=== PATIENT | female | born 1940 | race African-American/Black ===

== ENCOUNTER 2017-03-29 15:06 | Inpatient (IN) | payer OTHER ==
[~2017-03-29] VITALS: Ht 154.9 cm; Wt 88.5 kg
--- NOTE | ~2017-03-29 | 2DMMODE ---
[facility] [address] [place] [address] 2 D/M-MODE ECHOCARDIOGRAM Name: BENITOPHYLICIAERIS Maricel Room #: 412-P [facility] IN [facility]#: [id number] Admission: 03/29/17 Attend Phys: Preston Ceballos MD Discharge: Date of : 40 Date of Service: 03/30/17 1116 Report #: [id number] THIS REPORT FOR: //name// APPROVED REPORT Study performed: 03/30/2017 10:16:04 EXAM: Comprehensive 2D, Doppler, and color-flow Echocardiogram Patient Location: Bedside Room #: 412 Status: routine BSA: 1.85 BP: 165/93 mmHg Other Information Study Quality: Technically DifficultTechnically Limited Technically limited study due to uncooperative patient. Indications Congestive Heart Failure Diabetes Hypertension/HDD Paroxysmal atrial fibrillation 2D Dimensions LVEF(%): 55.70 (>50%) IVSd: 13.90 (7-11mm) LVOT Diam: 17.83 (18-24mm) LVDd: 43.41 mm PWd: 13.37 (7-11mm) Ascending Ao: 32.22 (22-36mm) LVDs: 30.90 (25-40mm) Aortic Root: 30.99 mm IVC: 21.00 mm Madrigal's LVEF: 55.70 % Volumes Left Atrial Volume (Systole) Single Plane 4CH: 48.69 mL Single Plane 2CH: 41.35 mL LA ESV Index: 26.00 mL/m2 Aortic Valve AoV Peak Dionisio.: 1.46 m/s AO Peak Gr.: 8.53 mmHg LVOT Max P.49 mmHg LVOT Max V: 1.17 m/s RONIT Vmax: 2.00 cm2 [facility] [address] [address] [place] [address] 2 D/M-MODE ECHOCARDIOGRAM Name: ERIS OLIVER Room #: 412-P [facility] IN [facility]#: [id number] Admission: 03/29/17 Attend Phys: Preston Ceballos MD Discharge: Date of : 40 Date of Service: 03/30/17 1116 Report #: [id number] Mitral Valve E/A Ratio: 0.5 MV Decel. Time: 285.92 ms MV E Max Dionisio.: 0.59 m/s MV A Dionisio.: 1.22 m/s MV PHT: 82.92 ms IVRT: 101.50 ms Pulmonary Valve PV Peak Dionisio.: 1.13 m/s PV Peak Gr.: 5.09 mmHg Tricuspid Valve RAP Estimate: 5.00 mmHg Left Ventricle The left ventricle is normal size. Regional wall motion is not well visualized but grossly normal. Mild to moderate concentric left ventricular hypertrophy. The left ventricular systolic function is normal. The left ventricular ejection fraction is within the normal range. LVEF is 60-65%. Mild diastolic dysfunction is present (impaired relaxation pattern). Right Ventricle Right ventricle is not well visualized. Atria The left atrium size is normal. Right atrium is not well visualized. Aortic Valve The aortic valve is midly calcified No aortic regurgitation is present. There is no aortic valvular stenosis. Mitral Valve Mild mitral annular calcification. There is no mitral valve regurgitation noted. No evidence of mitral valve stenosis. Tricuspid Valve Tricuspid valve is not well visualized. Unable to assesss PA pressure. Pulmonic Valve Pulmonic valve is not well visualized. [employer] [facility] [place] [address] 2 D/M-MODE ECHOCARDIOGRAM Name: ERIS OLIVER Room #: 412-P ADM IN M.R.#: [id number] Admission: 03/29/17 Attend Phys: Preston Ceballos MD Discharge: Date of : 40 Date of Service: 03/30/17 1116 Report #: [id number] The aortic root is normal in size. IVC is upper limits of normal in size and collapses >50% with inspiration. Pericardium There is no pericardial effusion. <Conclusion> The left ventricular systolic function is normal. Mild to moderate concentric LVH Regional wall motion is not well visualized but grossly normal. LVEF 60-65%. Mild diastolic dysfunction is present (impaired relaxation pattern). The aortic valve is midly calcified. No aortic regurgitation or stenosis Mild mitral annular calcification. No mitral valve regurgitation noted. There is no pericardial effusion. <ELECTRONICALLY SIGNED> By: Alexis Wilson MD, FACC 03/30/17 1116 1116 1116 Alexis Wilson MD, FAC /INF
--- NOTE | ~2017-03-29 | HC ---
[facility] [place] [address] [place] [address] CONSULTATION Name: ERIS OLIVER Room #: 412-P [facility] IN .R.#: [id number] Admission: 03/29/17 Attend Phys: Preston Ceballos MD Discharge: Date of : 40 Report #: [id number] THIS REPORT FOR: //name// CC: Al Ceballos DATE OF SERVICE: 03/31/2017 HISTORY OF PRESENT ILLNESS: The patient is a 76-year-old -[place] female who was found down at home by her sister. 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 Upon admission to [facility], she was diagnosed with a urinary tract infection and noted to have greater than 10 to 15 E. coli. She is being changed to gentamicin to continue IV. She also complained of severe pain involving her right large toe. She has an elevated uric acid of 9.4 and has been diagnosed with an acute attack of gout. Therapy orders are resumed with PT and OT allowing her to try to weightbear as best she can on that right foot. Obviously with her premorbid left hemiparesis complicated by the right large toe pain. She has had a significant decline in her functional independence. This is further complicated by the urinary tract infection and the fall for which she was down at home premorbidly. PAST MEDICAL HISTORY: Includes hypertension, CVA x 2, borderline mental retardation, and obesity. The CVA includes left-sided hemiparesis. MEDICATIONS: Please see the full medication listing. ALLERGIES: BETA BLOCKERS AND SULFA. HABITS: Past tobacco, quit greater than a year ago. No history of alcohol abuse. FAMILY HISTORY: Significant for obesity, osteoarthritis, diabetes mellitus type 2, and hypertension. SOCIAL HISTORY: Lives in an apartment alone, uses the walker. Her sister helps her as well as the niece. There are no steps. Sisters apparently closely involved as well as the niece. REVIEW OF SYSTEMS: She did not offer any current complaints of chest pain, shortness of breath or abdominal discomfort. Notes that the right large toe discomfort is improving. No other focal extremity pain complaints. Denied any swallowing problems per se. PHYSICAL EXAMINATION: GENERAL: She is a 76-year-old -[place] [address] CONSULTATION Name: ERIS OLIVER Room #: [facility]..#: [id number] Admission: 03/29/17 Attend Phys: Preston Ceballos MD Discharge: Date of : 40 Report #: [id number] VITAL SIGNS: Last recorded temperature is 98, pulse 81, respirations 16, blood pressure 147/83. NEUROLOGIC: The patient is alert. Facies are symmetric. She does have poor dentition. She is able to verbalize reasonably well. ABDOMEN: She does have significant Exogenous obesity. Extremities: Functional range of motion of the right upper extremity without focal weakness. Left upper extremity reveals premorbid paresis. I would grade her at a 3+/5. She moves that left upper extremity slowly. Left lower extremity is probably a grade 3+ to 4-/5. Right lower extremity strength is more of a grade 4/5. Upon examination of the right large toe. She is able to wiggle it and I was able to touch the toe and do some gentle testing. No significant erythema at this time. She notes it still hurts, but it is improving. There is no focal calf swelling. She is noted to be min assist with bed mobility and was last max assist for stand pivot. ASSESSMENT: A 76-year-old female with the following problem list: 1. Premorbid left hemiparesis. 2. Acute attack of gout, right hallux. 3. Urinary tract infection, on intravenous gentamicin. 4. Fall at home being found down by sister. 5. Hypertension. 6. Exogenous obesity. 7. Obstructive sleep apnea. 8. Diabetes mellitus type 2. 9. Poor dentition. 10. History of osteoarthritis in multiple sites. PLAN: PT and OT will continue to work with her again today and we will see how she tolerates the therapies. Insurance will need to be checked regarding a possible rehabilitation therapy stay. She is very motivated to return back home and specifically decided that she does not want to go to any type of residential. We will see how she does in therapies and check with insurance and follow along from there. Thank you for asking us to assist in this patient's care. <ELECTRONICALLY SIGNED> By: Kendrick Gordillo MD 04/03/17 1509 [id number] [id number] Kendrick Gordillo MD /STEPHANE
--- NOTE | ~2017-03-29 | EKG ---
[facility] [place] [address] ELECTROCARDIOGRAM REPORT Name: ERIS OLIVER Room #: [facility] Jimena#: [id number] Admission: 03/29/17 Attend Phys: Discharge: Date of : 40 Report #: [id number] THIS REPORT FOR: //name// [facility] ED Test Date: 2017-03-29 Test Time: 16:03:53 Pat Name: ERIS BENITO Department: Room: Gender: F Merchandise Manager: YOVANNY : 1940 Requested By: Bill Corrigan Order Number: [id number] MD: Jose Philippe Measurements Intervals [place] Rate: 89 P: -12 [place]: 177 QRS: -29 QRSD: 85 T: 9 QT: 403 QTc: 491 Interpretive Statements Sinus rhythm Left atrial enlargement Borderline left axis deviation Abnormal R-wave progression, late transition Artifact in lead(s) III,aVR,aVL,aVF,V1,V2,V3,V4,V5 Compared to ECG 02/11/2013 15:59:28 Sinus tachycardia no longer present Atrial premature complex(es) no longer present Aberrant conduction of supraventricular beat(s) no longer present Left ventricular hypertrophy no longer present Electronically Signed On 03-29-2017 16:21:50 WAYBILL CLERK by Jose Philippe [email or web address] <ELECTRONICALLY SIGNED> By: Jose Philippe MD 03/29/17 1621 02 160 Jose Philippe MD /EPI
[~2017-03-29 15:06] MED LIST: ASPIRIN325 PO; AVELOX 400 MG400 MG PO; BAYER CHEWABLE81 MG PO; BLOOD PRESSURE MED; CARDURA2 MG PO; CARDURA4 MG PO; CARDURA8 MG PO; CARTIA XT240 M1 PO; CATAPRES-TTS 20.2 M1 TRANSDERM; CATAPRESS3 TRANSDERM; CIPRO250 M1 PO; CLONIDINE HCL0.3 M3 PO; CLONIDINE0.1 PO; COREG6.25 MG PO; DILTIAZEM 24HR240 MG PO; DILTIAZEM ER240 M1 PO; DUONEB 2.5-0.5 M3 ML; FUROSEMIDE 40 M40 M1 PO; FUROSEMIDE 80 M80 M1 PO; HYDRALAZINE 2525 M1 PO; HYDROCHLOROTHIA25 M2 PO; HYDROCODONE-AP1 EAC6 PO; KEFLEX500 MG PO; KLOR-CON 10 ER10 MEQ PO; KLOR-CON 1010 MEQ PO; LISINOPRIL40 MG PO; NORCO 5-325 TA1 EACH PO; PRAVACHOL40 MG PO; PREDNISONE 20 M20 MG PO; PREDNISONE 5 MG5 M1; PREDNISONE 5 MG5 M1 PO; TORSEMIDE20 MG PO; TRANDATE 200 M200 MG PO; VERAPAMIL E.R240 M1 PO
[2017-03-29 15:13] VITALS: BP 207/114
[2017-03-29] MEDS ORDERED: CARDIZEM CD180 MG PO (15:22)
[2017-03-29] MEDS ORDERED: DEMADEX20 MG PO (15:23)
[2017-03-29] MEDS ORDERED: CLONIDINE0.1 PO (15:23)
[2017-03-29] MEDS ORDERED: CARDURA4 MG PO (15:24)
[2017-03-29 16:19] LABS: HEMOGLOBIN 13.3 gm/dL (12.0-15.0); MCHC 32.5 g/dL (28.0-37.0); MCV 79.9 fL (80.0-100.0); RBC 5.13 mil/uL (4.20-5.00); RDW 16.5 % (10.5-14.5); WBC 17.7 thou/uL (4.0-11.0)
[2017-03-29 16:41] LABS: ANION GAP 12 mmol/L (7-16); BUN 34 mg/dL (7-18); CALCIUM 9.5 mg/dL (8.5-10.1); CHLORIDE 99 mmol/L (98-107); CO2 24 mmol/L (21-32); CREATININE 1.6 mg/dL (0.6-1.0); GLUCOSE 119 mg/dL (74-106); POTASSIUM 4.3 mmol/L (3.5-5.1); SODIUM 135 mmol/L (136-145)
[2017-03-29 16:50] LABS: SGOT 17 U/L (15-37); SGPT 14 U/L (30-65); TOTAL BILIRUBIN 0.8 mg/dL (<0.1-1.0); TROPONIN-I < 0.04 ng/mL (<0.06)
[2017-03-29 16:50] LABS: URINE BILIRUBIN NEGATIVE (Negative); URINE BLOOD 2+ (Negative); URINE CLARITY CLEAR; URINE COLOR YELLOW; URINE GLUCOSE-RANDOM* NEGATIVE (Negative); URINE KETONES 1+ (Negative); URINE PROTEIN (DIPSTICK) 1+ (Negative); URINE SPECIFIC GRAVITY >= 1.030 (1.005-1.035); URINE UROBILINOGEN 0.2 E.U./dl (0.2-1.0)
[2017-03-29 16:52] LABS: URINE LEUKOCYTES-REFLEX 2+ (Negative); URINE NITRITE-REFLEX POSITIVE (Negative)
[2017-03-29 16:59] LABS: SQUAMOUS 4-10 Moderate /LPF (0-3)
[2017-03-29 16:59] LABS: ALBUMIN 3.1 g/dL (3.4-5.0); MAGNESIUM 2.1 mg/dL (1.8-2.4)
[2017-03-29 17:00] LABS: BACTERIA-REFLEX >30 Many /HPF (None Seen); URINE WBC-REFLEX >25 Many /HPF (0-5)
[2017-03-29 17:01] LABS: CASTS None Seen /LPF (None Seen); CRYSTALS None Seen /LPF (None Seen); URINE RBC 3-10 Few /HPF (0-2)
[2017-03-29 17:59] VITALS: BP 160/87
[2017-03-29 18:05] VITALS: BP 157/98
[2017-03-29 18:37] VITALS: BP 156/82
[2017-03-29 20:00] VITALS: BP 132/105
[2017-03-30] VITALS: BP 153/106
[2017-03-30 03:49] VITALS: BP 165/93
[2017-03-30 05:56] LABS: HEMATOCRIT 34.9 % (37.0-47.0); HEMOGLOBIN 11.7 gm/dL (12.0-15.0); MCH 26.5 pg (26.0-34.0); MCHC 33.4 g/dL (28.0-37.0); MCV 79.2 fL (80.0-100.0); RBC 4.41 mil/uL (4.20-5.00); RDW 16.1 % (10.5-14.5); WBC 11.4 thou/uL (4.0-11.0)
[2017-03-30 06:05] LABS: CREATININE 1.5 mg/dL (0.6-1.0); POTASSIUM 3.8 mmol/L (3.5-5.1)
[2017-03-30 08:54] VITALS: BP 160/97
[2017-03-30 18:36] VITALS: BP 156/80
[2017-03-30 20:29] VITALS: BP 149/97
[2017-03-31 04:10] VITALS: BP 166/94
[2017-03-31 08:00] VITALS: BP 147/83
[2017-03-31 16:13] VITALS: BP 135/72
[2017-03-31 20:03] VITALS: BP 162/79
[2017-04-01 05:43] VITALS: BP 180/92
[2017-04-01 07:35] LABS: HEMATOCRIT 32.5 % (37.0-47.0); HEMOGLOBIN 10.4 gm/dL (12.0-15.0); MCH 26.1 pg (26.0-34.0); MCHC 32.2 g/dL (28.0-37.0); MCV 81.1 fL (80.0-100.0); RDW 15.9 % (10.5-14.5); WBC 12.9 thou/uL (4.0-11.0)
[2017-04-01 07:52] LABS: CREATININE 1.3 mg/dL (0.6-1.0); POTASSIUM 3.9 mmol/L (3.5-5.1)
[2017-04-01 08:00] VITALS: BP 189/101
[2017-04-01 16:00] VITALS: BP 183/96
[2017-04-01 20:40] VITALS: BP 161/92
[2017-04-02 04:50] VITALS: BP 160/93
[2017-04-02 07:24] LABS: CALCIUM 8.1 mg/dL (8.5-10.1); CREATININE 1.4 mg/dL (0.6-1.0); POTASSIUM 3.8 mmol/L (3.5-5.1)
[2017-04-02 08:00] VITALS: BP 186/105
[2017-04-02 16:00] VITALS: BP 161/83
[2017-04-02 20:00] VITALS: BP 175/95
[2017-04-03 06:35] LABS: CALCIUM 8.5 mg/dL (8.5-10.1); CREATININE 1.3 mg/dL (0.6-1.0); POTASSIUM 4.1 mmol/L (3.5-5.1)
[2017-04-03 08:00] VITALS: BP 199/108
[2017-04-03 16:00] VITALS: BP 163/100
[2017-04-03 20:32] VITALS: BP 194/96
[2017-04-04 03:26] VITALS: BP 157/87
[2017-04-04 06:42] LABS: HEMATOCRIT 36.4 % (37.0-47.0); HEMOGLOBIN 11.9 gm/dL (12.0-15.0); MCH 26.4 pg (26.0-34.0); MCHC 32.6 g/dL (28.0-37.0); RBC 4.49 mil/uL (4.20-5.00); RDW 16.1 % (10.5-14.5); WBC 7.5 thou/uL (4.0-11.0)
[2017-04-04 07:03] LABS: ALBUMIN 2.4 g/dL (3.4-5.0); ANION GAP 7 mmol/L (7-16); BUN 22 mg/dL (7-18); CALCIUM 8.6 mg/dL (8.5-10.1); CHLORIDE 104 mmol/L (98-107); CO2 27 mmol/L (21-32); CREATININE 1.3 mg/dL (0.6-1.0); DIRECT BILIRUBIN < 0.1 mg/dL (<0.1-0.3); GLUCOSE 85 mg/dL (74-106); POTASSIUM 3.9 mmol/L (3.5-5.1); SGOT 13 U/L (15-37); SGPT 16 U/L (30-65); SODIUM 138 mmol/L (136-145); TOTAL BILIRUBIN 0.2 mg/dL (<0.1-1.0); TOTAL PROTEIN 6.2 g/dL (6.4-8.2)
[2017-04-04 09:54] VITALS: BP 168/98
[2017-04-04 12:31] VITALS: BP 150/87
[2017-04-04 19:32] VITALS: BP 147/76
[2017-04-05 04:45] VITALS: BP 177/82
[2017-04-05 05:29] LABS: URINE BILIRUBIN NEGATIVE (Negative); URINE BLOOD NEGATIVE (Negative); URINE CLARITY CLEAR; URINE COLOR YELLOW; URINE GLUCOSE-RANDOM* NEGATIVE (Negative); URINE KETONES NEGATIVE (Negative); URINE LEUKOCYTES-REFLEX NEGATIVE (Negative); URINE NITRITE-REFLEX NEGATIVE (Negative); URINE PROTEIN (DIPSTICK) NEGATIVE (Negative); URINE UROBILINOGEN 0.2 E.U./dl (0.2-1.0)
[2017-04-05 08:00] VITALS: BP 161/106
[2017-04-05 10:02] VITALS: BP 161/106
[2017-04-05] MEDS ORDERED: ACETAMINOPHEN325 M1 PO (12:11)
[2017-04-05] MEDS ORDERED: LISINOPRIL40 MG PO (12:11)
[2017-04-05] MEDS ORDERED: GLUTOSE GEL 1515 G1 PO (12:22)
[2017-04-05] MEDS ORDERED: MIRALAX17 GM PO (12:29)
[2017-04-05] MEDS ORDERED: ALLOPURINOL 10100 M2 PO (12:35)
[2017-04-05 13:35] VITALS: BP 161/106
== END 2017-04-05 15:35 | disposition home health service (06) | DRG 689 ==
LOC: ER 15:06 → EROBS 17:16 → 4N 17:16 → ENTRNSPT 04-05 15:09 → EDTRNSPTSTS 04-05 15:12 → 4N 04-05 15:35
PROVIDERS: Emergency Medicine; Hospitalist; Internal Medicine
DX: N39.0 Urinary tract infection, site not specified (principal); E43 Unspecified severe protein-calorie malnutrition; G93.41 Metabolic encephalopathy; I13.0 Hypertensive heart and chronic kidney disease with heart failure and stage 1 through stage 4 chronic kidney disease, or unspecified chronic kidney disease; I69.354 Hemiplegia and hemiparesis following cerebral infarction affecting left non-dominant side; M10.9 Gout, unspecified; G47.33 Obstructive sleep apnea (adult) (pediatric); M19.90 Unspecified osteoarthritis, unspecified site; I48.91 Unspecified atrial fibrillation; I11.0 Hypertensive heart disease with heart failure; I50.9 Heart failure, unspecified; N18.9 Chronic kidney disease, unspecified; E11.22 Type 2 diabetes mellitus with diabetic chronic kidney disease; B96.20 Unspecified Escherichia coli [E. coli] as the cause of diseases classified elsewhere; E66.09 Other obesity due to excess calories; M79.671 Pain in right foot; K59.00 Constipation, unspecified; E55.9 Vitamin D deficiency, unspecified; E78.5 Hyperlipidemia, unspecified; E11.51 Type 2 diabetes mellitus with diabetic peripheral angiopathy without gangrene; Z91.81 History of falling; Z68.36 Body mass index [BMI] 36.0-36.9, adult; Z88.1 Allergy status to other antibiotic agents; Z88.8 Allergy status to other drugs, medicaments and biological substances; Z82.61 Family history of arthritis; Z82.3 Family history of stroke; Z84.89 Family history of other specified conditions; Z83.3 Family history of diabetes mellitus; Z82.49 Family history of ischemic heart disease and other diseases of the circulatory system; Z87.891 Personal history of nicotine dependence
CPT/HCPCS: 10790

== ENCOUNTER 2020-12-02 16:19 | Emergency (ER) | payer OTHER ==
[~2020-12-02] VITALS: Ht 167.6 cm; Wt 90.7 kg
[~2020-12-02 16:19] MED LIST changes: +ACETAMINOPHEN325 M1 PO; +ALLOPURINOL 10100 M2 PO; +CARDIZEM CD180 MG PO; +DEMADEX20 MG PO; +GLUTOSE GEL 1515 G1 PO; +MIRALAX17 GM PO
[2020-12-02 16:58] LABS: BASOPHILS 0.5 % (0.0-2.0); EOSINOPHILS 0.8 % (0.0-3.0); HEMATOCRIT 40.8 % (37.0-47.0); HEMOGLOBIN 13.3 gm/dL (12.0-15.0); MCH 27.1 pg (26.0-34.0); MCHC 32.6 g/dL (28.0-37.0); MCV 83.1 fL (80.0-100.0); MONOCYTES 7.5 % (1.0-8.0); PLATELET COUNT 257 thou/uL (150-400); POLYS 75.2 % (36.0-66.0); RDW 16.2 % (10.5-14.5)
[2020-12-02 17:07] LABS: CREATININE 1.6 mg/dL (0.6-1.0); POTASSIUM 3.9 mmol/L (3.5-5.1)
[2020-12-02 17:09] LABS: APTT 27.9 Seconds (24.5-32.8); PROTIME 10.9 Seconds (10.5-12.1)
[2020-12-02 17:18] LABS: ALBUMIN 3.1 g/dL (3.4-5.0); DIRECT BILIRUBIN 0.1 mg/dL (<0.1-0.2); TOTAL BILIRUBIN 0.5 mg/dL (0.2-1.0); TOTAL PROTEIN 7.9 g/dL (6.4-8.2)
[2020-12-02] MEDS ORDERED: ATORVASTATIN CA80 MG PO (18:57)
[2020-12-02] MEDS ORDERED: DILTIAZEM 24HR300 M2 PO (18:57)
[2020-12-02] MEDS ORDERED: LOSARTAN POTASS50 MG PO (18:58)
[2020-12-02 21:35] VITALS: BP 175/100
--- NOTE | 2020-12-04 12:19 | EKG ---
[place] [address] [email or web address] [address] ELECTROCARDIOGRAM REPORT Name: ERIS OLIVER [id number] Admission: 12/02/20 Attend Phys: Discharge: 12/02/20 Date of : 40 Report #: [id number] [facility] ED Test Date: 2020-12-02 Test Time: 16:23:02 Pat Name: ERIS OLIVER Department: Room: Gender: F Extender: unknown : 1940 Requested By: Liliana Little Order Number: [id number] MD: Alexis Wilson Measurements Intervals [place] Rate: 97 P: -4 [place]: 188 QRS: -11 QRSD: 84 T: 27 QT: 363 QTc: 461 Interpretive Statements Sinus rhythm Poor R wave progression Compared to ECG 03/29/2017 16:03:53 No significant changes Electronically Signed On 12-04-2020 12:19:25 CDT by Alexis Wilson [email or web address] <ELECTRONICALLY SIGNED> By: Alexis Wilson MD, [facility] 12/04/20 1219 1623 1623 Alexis Wilson MD, FACC /EPI
== END 2020-12-02 21:35 | disposition home or self-care (01) ==
LOC: ER 16:19
PROVIDERS: Emergency Medicine
DX: R07.89 Other chest pain (principal); I48.91 Unspecified atrial fibrillation; E11.22 Type 2 diabetes mellitus with diabetic chronic kidney disease; N18.9 Chronic kidney disease, unspecified; F32.9 Major depressive disorder, single episode, unspecified; Z79.891 Long term (current) use of opiate analgesic; Z79.899 Other long term (current) drug therapy; Z88.2 Allergy status to sulfonamides; Z88.8 Allergy status to other drugs, medicaments and biological substances; Z87.891 Personal history of nicotine dependence